=== PATIENT | male | born 1950 | race Caucasian/White ===

== ENCOUNTER 2020-06-26 16:26 | Emergency (ER) | payer OTHER, MEDICARE ==
[2020-06-26 16:32] VITALS: TEMP 97.4
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
[2020-06-26 19:09] VITALS: BP 151/96; PULSE 79; RESP 18
== END 2020-06-26 19:11 | disposition home or self-care (01) ==
LOC: EC 16:26
DX: S16.1XXA Strain of muscle, fascia and tendon at neck level, initial encounter (principal); M54.9 Dorsalgia, unspecified; V43.52XA Car driver injured in collision with other type car in traffic accident, initial encounter; Y92.410 Unspecified street and highway as the place of occurrence of the external cause
CPT/HCPCS: 70450; 72125; 72131; 99284

== ENCOUNTER → 2021-03-06 | Outpatient (CLI) | payer OTHER ==
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
== END | disposition home or self-care (01) ==
LOC: RADMRIMAIN 12:09
PROVIDERS: ATTEND Family Medicine
DX: M50.123 Cervical disc disorder at C6-C7 level with radiculopathy (principal)
CPT/HCPCS: 72156; A9585